=== PATIENT | female | born 1935 | race Caucasian/White ===

== ENCOUNTER 2021-12-17 17:37 | Emergency (ER) | payer MEDICAID ==
[~2021-12-17] VITALS: Ht 172.7 cm; Wt 81.6 kg
--- NOTE | 2021-12-17 17:37 | NUR ---
1730 BIBA BLS TO ER BED 1
[2021-12-17 17:41] VITALS: BP 127/66
--- NOTE | 2021-12-17 18:27 | NUR ---
ROBIN SPECIMEN COLLECTED AND HANDED TO LAB.
[2021-12-17 18:45] LABS: BASOPHILS % (AUTO) 0.2 % (0.0-2.0); EOSINOPHILS # (AUTO) 0.1 K/uL (0-0.4); EOSINOPHILS % (AUTO) 3.9 % (0.0-4.0); HEMATOCRIT 30.4 % (36-48); HEMOGLOBIN 10.4 g/dL (12.0-16.0); LYMPHOCYTES # (AUTO) 0.3 K/uL (2.5-16.5); LYMPHOCYTES % (AUTO) 10.6 % (20.5-51.1); MEAN CORPUSCULAR HEMOGLOBIN 30 pg (27-31); MEAN CORPUSCULAR HGB CONC 34 g/dL (33-37); MONOCYTES # (AUTO) 0.2 K/uL (0.8-1.0); MONOCYTES % (AUTO) 7.3 % (1.7-9.3); NEUTROPHILS # (AUTO) 2.2 K/uL (1.8-7.7); PLATELET COUNT (AUTO) 107 K/uL (140-450); RED BLOOD CELL COUNT(AUTO) 3.45 MIL/uL (4.20-5.40); RED CELL DISTRIBUTION WIDTH 14.3 % (11.6-13.7); WHITE BLOOD COUNT (AUTO) 2.9 K/uL (4.8-10.8)
[2021-12-17 19:09] LABS: ANION GAP 13.2 (8-16); ASPARTATE AMINOTRANSFERASE 16 U/L (15-37); CARBON DIOXIDE 22.5 mmol/L (21-32); CHLORIDE 107 mmol/L (98-107); CREATININE 1.3 mg/dL (0.6-1.3); GLUCOSE 131 mg/dL (74-106); POTASSIUM 3.7 mmol/L (3.5-5.1); SODIUM SERUM 139 mmol/L (136-145); TOTAL BILIRUBIN 0.4 mg/dL (0.0-1.0); UREA NITROGEN, BLOOD 24 mg/dL (7-18)
--- NOTE | 2021-12-17 19:19 | NUR ---
Pt report given to CHANDANA BLEVINS. Transfer of care at this time.
--- NOTE | 2021-12-17 19:25 | NUR ---
PT ASSISTED TO BATHROOM.
--- NOTE | 2021-12-17 19:37 | NUR ---
TALKED TO ANNAAIR GOLDSTEIN. NOTIFIED PT WAS COVID POSITIVE. MR INFORMED THEY DO TAKE PT BACK. PT WOULD BE QUARANTINED FOR 10 DAYS IN ROOM.
--- NOTE | 2021-12-17 19:44 | NUR ---
SPOKE TO PT DAUGHTER . INFORMED HER MOTHER WAS COVID POSITIVE. DAUGHTER OK WITH SENDING HER BACK TO [facility].
--- NOTE | 2021-12-17 21:40 | NUR ---
WALKED URINE TO LAB
[2021-12-17 22:13] LABS: APPEARANCE,URINE CLOUDY (CLEAR); BILIRUBIN,URINE NEGATIVE (NEGATIVE); BLOOD, URINE 3+ (NEGATIVE); COLOR,URINE YELLOW (YELLOW); LEUKOCYTE ESTERASE ,URINE 3+ (NEGATIVE); NITRITE, URINE NEGATIVE (NEGATIVE); UGLUCOSE NEGATIVE (NEGATIVE)
[2021-12-17 22:43] LABS: WBC,URINE TOO MANY TO COUNT /HPF (0-5)
[2021-12-17] MEDS ORDERED: SULF-59 PO (22:54)
[2021-12-17] MEDS ORDERED: cefTRIAXone 1,000 MG VIAL ONE (23:06)
[2021-12-18 00:22] LABS: ALBUMIN 2.9 g/dL (3.4-5.0)
[2021-12-18 00:37] VITALS: BP 139/51
--- NOTE | 2021-12-18 00:42 | NUR ---
ATTEMPTED TO CONTACT [facility], SPOKE WITH JEAN CLAUDE. PT OK TO TRANSPORT BACK
[2021-12-18] MEDS ORDERED: ACETAMINOPHEN 325 MG SUPP RC ONE ×2 (00:50→00:52)
--- NOTE | 2021-12-18 01:00 | NUR ---
PT TRANSPORTED BACK TO FACILITY AT THIS TIME. RX OF BACTRIM PROVIDED.
== END 2021-12-18 01:00 | disposition home or self-care (01) ==
LOC: MED 17:37
DX: U07.1 COVID-19 (principal); N39.0 Urinary tract infection, site not specified; F03.90 Unspecified dementia, unspecified severity, without behavioral disturbance, psychotic disturbance, mood disturbance, and anxiety; I10 Essential (primary) hypertension; Z79.899 Other long term (current) drug therapy
CPT/HCPCS: 36415; 71045; 80053; 81001; 85025; 87086; 87426; 96365; 99284; J0696

== ENCOUNTER 2022-05-26 10:06 | Emergency (ER) | payer OTHER, MEDICAID ==
[~2022-05-26] VITALS: Ht 157.5 cm; Wt 59.0 kg
[~2022-05-26 10:06] MED LIST: SULF-59 PO
[2022-05-26 10:15] VITALS: BP 166/57
--- NOTE | 2022-05-26 10:15 | NUR ---
PT TAKEN TO BED 1
--- NOTE | 2022-05-26 10:35 | NUR ---
87 Y/O BIBA FROM [facility], C/O OF DIARRHEA TODAY 4-5 EPISODES OF LOOSE STOOL. DENIES ANY N/V, CHEST PAIN AND SOB. PT DENIES ANY PAIN RIGHT NOW. PT IS A&OX3, SKIN INTACT, STEADY GAIT TO BED, VITALS WNL, AND NO SIGNS OF RESPIRATORY DISTRESS. PT WAS PLACED ON THE BEDSIDE MONITOR. NKA PMH: DEMENTIA, HTN, THYROID CA SX: BILATERAL HIP REPLACEMENT
[2022-05-26 11:00] LABS: BASOPHILS # (AUTO) 0.1 K/uL (0.00-0.22); BASOPHILS % (AUTO) 3.2 % (0.0-2.0); EOSINOPHILS % (AUTO) 0.3 % (0.0-4.0); HEMATOCRIT 35.3 % (36-48); LYMPHOCYTES % (AUTO) 30.9 % (20.5-51.1); MEAN CORPUSCULAR HEMOGLOBIN 31 pg (27-31); MEAN CORPUSCULAR HGB CONC 34 g/dL (33-37); MEAN CORPUSCULAR VOLUME 91.6 fL (80-94); MONOCYTES # (AUTO) 0.4 K/uL (0.8-1.0); MONOCYTES % (AUTO) 12.5 % (1.7-9.3); NEUTROPHILS # (AUTO) 1.7 K/uL (1.8-7.7); NEUTROPHILS % (AUTO) 53.1 % (42.2-75.2); PLATELET COUNT (AUTO) 166 K/uL (140-450); RED BLOOD CELL COUNT(AUTO) 3.86 MIL/uL (4.20-5.40); RED CELL DISTRIBUTION WIDTH 14.5 % (11.6-13.7); WHITE BLOOD COUNT (AUTO) 3.2 K/uL (4.8-10.8)
--- NOTE | 2022-05-26 11:13 | NUR ---
GAVE PT TWO BLANKETS AND INFORMED HER WE WERE WAITING ON HER LABS. ALL PTS NEEDS MET AT THIS TIME.
[2022-05-26 12:47] LABS: ANION GAP 19.2 (8-16); ASPARTATE AMINOTRANSFERASE 18 U/L (15-37); CARBON DIOXIDE 21.2 mmol/L (21-32); CHLORIDE 108 mmol/L (98-107); GLUCOSE 96 mg/dL (74-106); LIPASE 85 U/L (73-393); POTASSIUM 4.4 mmol/L (3.5-5.1); SODIUM SERUM 144 mmol/L (136-145); TOTAL BILIRUBIN 0.8 mg/dL (0.0-1.0); UREA NITROGEN, BLOOD 17 mg/dL (7-18)
[2022-05-26] MEDS ORDERED: LOPE-289 PO (13:10)
[2022-05-26 13:36] VITALS: BP 159/76
--- NOTE | 2022-05-26 13:37 | NUR ---
Patient discharged with v/s stable. Written and verbal after care instructions given and explained. Patient alert, oriented and verbalized understanding of instructions. Wheel Chair Assisted with to car. All questions addressed prior to discharge. ID band removed. Patient advised to follow up with PMD. Rx of IMODIUM A-D given. Patient educated on indication of medication including possible reaction and side effects. Opportunity to ask questions provided and answered.
== END 2022-05-26 13:37 | disposition home or self-care (01) ==
LOC: MED 10:06
DX: R19.7 Diarrhea, unspecified (principal); F03.90 Unspecified dementia, unspecified severity, without behavioral disturbance, psychotic disturbance, mood disturbance, and anxiety; I10 Essential (primary) hypertension; Z85.850 Personal history of malignant neoplasm of thyroid; Z79.899 Other long term (current) drug therapy
CPT/HCPCS: 36415; 80053; 83690; 85025; 99283

== ENCOUNTER 2022-07-26 16:50 | Emergency (ER) | payer OTHER, MEDICAID ==
[~2022-07-26] VITALS: Ht 154.9 cm; Wt 60.4 kg
[~2022-07-26 16:50] MED LIST changes: +LOPE-289 PO
--- NOTE | 2022-07-26 16:55 | NUR ---
BIBA BLS TO ER BED 8
--- NOTE | 2022-07-26 17:20 | NUR ---
Note undone in EDM - 07/26/22 at 1827 by PHSEP 87YO MALE PT SIGRID FROM [facility]. PER [facility], FACILITY STATES PT HAD "CLAMMY SKIN". UPON ARRIVAL , PT AAOX1 TO NAME -AT BASELINE W/ COOL DRY SKIN. NO VISIBLE DISTRESS. DENIES PAIN, N/V/D, FEVER OR CHILLS. FALL RISK . RESPIRATIONS EVEN AND UNLABORED. HOB POSITONED PER COMFORT, BED AT LOWEST POSITION, RAIL UPX2. HX: HTN, DIMENTIA , OSTEOARTHRITIS NKA
--- NOTE | 2022-07-26 17:20 | NUR ---
87YO FEMALE PT DERIKA FROM [facility]. PER [facility], FACILITY STATES PT HAD "CLAMMY SKIN". UPON ARRIVAL , PT AAOX1 TO NAME -AT BASELINE W/ COOL DRY SKIN. NO VISIBLE DISTRESS. DENIES PAIN, N/V/D, FEVER OR CHILLS. FALL RISK . RESPIRATIONS EVEN AND UNLABORED. HOB POSITONED PER COMFORT, BED AT LOWEST POSITION, RAIL UPX2. HX: HTN, DIMENTIA , OSTEOARTHRITIS NKA
[2022-07-26 17:39] VITALS: BP 158/61
--- NOTE | 2022-07-26 18:20 | NUR ---
PUREWICK IN PLACE - ON HIGH CONTINUOUS SUCTION .
--- NOTE | 2022-07-26 18:45 | NUR ---
LAB AT BEDSIDE
[2022-07-26 19:04] LABS: BASOPHILS % (AUTO) 0.2 % (0.0-2.0); EOSINOPHILS % (AUTO) 0.1 % (0.0-4.0); HEMATOCRIT 36.7 % (36-48); HEMOGLOBIN 12.6 g/dL (12.0-16.0); LYMPHOCYTES # (AUTO) 0.7 K/uL (2.5-16.5); LYMPHOCYTES % (AUTO) 8.6 % (20.5-51.1); MEAN CORPUSCULAR HEMOGLOBIN 31 pg (27-31); MEAN CORPUSCULAR HGB CONC 34 g/dL (33-37); MEAN CORPUSCULAR VOLUME 90.4 fL (80-94); MONOCYTES # (AUTO) 0.7 K/uL (0.8-1.0); MONOCYTES % (AUTO) 8.6 % (1.7-9.3); NEUTROPHILS # (AUTO) 6.2 K/uL (1.8-7.7); NEUTROPHILS % (AUTO) 82.5 % (42.2-75.2); PLATELET COUNT (AUTO) 203 K/uL (140-450); RED BLOOD CELL COUNT(AUTO) 4.06 MIL/uL (4.20-5.40); RED CELL DISTRIBUTION WIDTH 13.3 % (11.6-13.7); WHITE BLOOD COUNT (AUTO) 7.6 K/uL (4.8-10.8)
[2022-07-26 19:18] LABS: ANION GAP 14.8 (8-16); CHLORIDE 107 mmol/L (98-107); CREATININE 1.2 mg/dL (0.6-1.3); GLUCOSE 143 mg/dL (74-106); POTASSIUM 3.8 mmol/L (3.5-5.1); SODIUM SERUM 142 mmol/L (136-145); UREA NITROGEN, BLOOD 15 mg/dL (7-18)
--- NOTE | 2022-07-26 19:21 | NUR ---
REPORT GIVEN TO BRIDGETT ELLINGTON. ALL QUESTIONS ANSWERED. TRANSFER OF CARE AT THIS TIME
[2022-07-26 20:18] VITALS: BP 158/61
--- NOTE | 2022-07-26 20:18 | NUR ---
Patient discharged with v/s stable. Written and verbal after care instructions given and explained. Patient verbalized understanding. Wheel Chair Assisted with to alf. All questions addressed prior to discharge. Advised to follow up with PMD.
--- NOTE | 2022-07-26 20:27 | NUR ---
PT IS UP FOR DC. DAUGHTER WILL BE PICKING UP PT
== END 2022-07-26 20:18 | disposition home or self-care (01) ==
LOC: MED 16:50
DX: R53.1 Weakness (principal); I10 Essential (primary) hypertension; E03.9 Hypothyroidism, unspecified; F03.90 Unspecified dementia, unspecified severity, without behavioral disturbance, psychotic disturbance, mood disturbance, and anxiety
CPT/HCPCS: 36415; 80048; 84484; 85025; 93005; 99284

== ENCOUNTER 2022-11-17 09:02 | Emergency (ER) | payer OTHER, MEDICAID ==
[~2022-11-17] VITALS: Ht 157.5 cm; Wt 63.5 kg
--- NOTE | 2022-11-17 09:06 | NUR ---
Patient BIBA to bed 6.
[2022-11-17 09:10] VITALS: BP 110/47
--- NOTE | 2022-11-17 09:31 | NUR ---
X-Ray at bedside.
[2022-11-17 09:43] LABS: BASOPHILS % (AUTO) 0.6 % (0.0-2.0); EOSINOPHILS # (AUTO) 0.2 K/uL (0-0.4); EOSINOPHILS % (AUTO) 4.8 % (0.0-4.0); HEMATOCRIT 33.1 % (36-48); HEMOGLOBIN 11.8 g/dL (12.0-16.0); LYMPHOCYTES % (AUTO) 28.3 % (20.5-51.1); MEAN CORPUSCULAR HEMOGLOBIN 32 pg (27-31); MEAN CORPUSCULAR HGB CONC 36 g/dL (33-37); MONOCYTES # (AUTO) 0.3 K/uL (0.8-1.0); MONOCYTES % (AUTO) 9.4 % (1.7-9.3); NEUTROPHILS % (AUTO) 56.9 % (42.2-75.2); PLATELET COUNT (AUTO) 179 K/uL (140-450); RED BLOOD CELL COUNT(AUTO) 3.72 MIL/uL (4.20-5.40); RED CELL DISTRIBUTION WIDTH 13.2 % (11.6-13.7); WHITE BLOOD COUNT (AUTO) 3.5 K/uL (4.8-10.8)
--- NOTE | 2022-11-17 09:57 | NUR ---
87 y/o female biba from [facility] for c/o syncope. Per EMS, patient had a syncopal episode in the shower with staff. Patient was sitting on shower chair. Patient does not remember what happened. Denies any pain or discomfort. Medical History: Dementia, HTN, Thyroid CA NKDA
[2022-11-17 10:02] LABS: ALBUMIN 4.1 g/dL (3.4-5.0); ANION GAP 11.1 (8-16); ASPARTATE AMINOTRANSFERASE 11 U/L (15-37); CARBON DIOXIDE 28.1 mmol/L (21-32); CHLORIDE 105 mmol/L (98-107); CREATININE 1.1 mg/dL (0.6-1.3); GLUCOSE 129 mg/dL (74-106); POTASSIUM 3.2 mmol/L (3.5-5.1); SODIUM SERUM 141 mmol/L (136-145); TOTAL BILIRUBIN 0.7 mg/dL (0.0-1.0); UREA NITROGEN, BLOOD 24 mg/dL (7-18)
[2022-11-17 10:59] LABS: APPEARANCE,URINE CLOUDY (CLEAR); BILIRUBIN,URINE NEGATIVE (NEGATIVE); BLOOD, URINE TRACE-I (NEGATIVE); COLOR,URINE YELLOW (YELLOW); LEUKOCYTE ESTERASE ,URINE 3+ (NEGATIVE); NITRITE, URINE POSITIVE (NEGATIVE); PH,URINE 6.5 (5.0-9.0); UGLUCOSE NEGATIVE (NEGATIVE)
[2022-11-17 11:12] LABS: OTHER CASTS, URINE None Seen /LPF (None Seen); WBC,URINE 20-60 /HPF (0-5)
[2022-11-17 11:30] VITALS: BP 108/60
[2022-11-17] MEDS ORDERED: cefTRIAXone 1,000 MG in LIDOCAINE MPF 1% 2.1 ML IM ONE (12:10)
[2022-11-17] MEDS ORDERED: cefTRIAXone 1,000 MG VIAL ONE (12:14)
[2022-11-17] MEDS ORDERED: LIDOCAINE MPF 1% 5 ML ONE (12:14)
[2022-11-17] MEDS ORDERED: CEPH-588 PO (12:14)
--- NOTE | 2022-11-17 12:17 | NUR ---
called for report to dionisio at facility, states they will send [facility] for transport, eta 10 minutes
[2022-11-17] MEDS ORDERED: POTASSIUM CHLORIDE 10 MEQ TABER PO ONE (12:30)
--- NOTE | 2022-11-17 12:41 | NUR ---
Patient discharged with v/s stable. Written and verbal after care instructions given. Patient alert, oriented and verbalized understanding of instructions. Wheel Chair Assisted with by caregiver. All questions addressed prior to discharge. ID band removed. Patient advised to follow up with PMD. Rx of Keflex given. Opportunity to ask questions provided and answered.
--- NOTE | 2022-11-17 12:42 | NUR ---
The patient's care was reviewed and supervised by Moraima Bella, RN, RN.
[2022-11-18] MEDS ORDERED: PROPOFOL 200 MG/20 ML VIAL IV ONE ×2 (11:32)
--- NOTE | 2022-11-19 18:15 | NUR ---
LATE ENTRY. RECEIVED POSITIVE URINE CULTURE. DISCREPANCY LOG SIGNED BY DR WINTERS. TREATMENT APPROPRIATE. FORM PLACED IN BINDER
== END 2022-11-17 12:47 | disposition home or self-care (01) ==
LOC: MED 09:02
DX: N39.0 Urinary tract infection, site not specified (principal); E87.6 Hypokalemia; R55 Syncope and collapse; I10 Essential (primary) hypertension
CPT/HCPCS: 36415; 71045; 80053; 81001; 84484; 85025; 87086; 93005; 96372; 99285; J0696; J2001; J2704

== ENCOUNTER 2022-12-01 11:08 | Emergency (ER) | payer OTHER, MEDICAID ==
[~2022-12-01] VITALS: Ht 162.6 cm; Wt 72.6 kg
[~2022-12-01 11:08] MED LIST changes: +CEPH-588 PO
[2022-12-01 11:10] VITALS: BP 120/64
--- NOTE | 2022-12-01 11:10 | NUR ---
PT BIBA BLS TO BED 6
--- NOTE | 2022-12-01 11:10 | NUR ---
Ashley villavicencio in [facility] - 12/01/22 at 1110 by ANTHONY Patient BIBA to bed 6.
--- NOTE | 2022-12-01 11:26 | NUR ---
87 y/o female biba from [facility] c/o rash to abdomen, back and buttocks x 2 days. Patient has no known allergies. Denies any pain, discomfort or SOB. Per EMS, staff stated patient went out with family 2 days ago unsure if she had any new food. Medical History: HTN, Dementia NKDA
--- NOTE | 2022-12-01 11:47 | NUR ---
Dr. Alvarado evaluating patient at bedside.
--- NOTE | 2022-12-01 12:02 | NUR ---
Lab at bedside.
[2022-12-01 12:44] LABS: APPEARANCE,URINE HAZY (CLEAR); BILIRUBIN,URINE NEGATIVE (NEGATIVE); BLOOD, URINE TRACE-I (NEGATIVE); COLOR,URINE YELLOW (YELLOW); LEUKOCYTE ESTERASE ,URINE TRACE (NEGATIVE); NITRITE, URINE NEGATIVE (NEGATIVE); PH,URINE 6.5 (5.0-9.0); UGLUCOSE NEGATIVE (NEGATIVE)
[2022-12-01 12:55] LABS: HEMOGLOBIN 11.8 g/dL (12.0-16.0); PLATELET COUNT (AUTO) 175 K/uL (140-450)
[2022-12-01 12:58] LABS: HEMATOCRIT 33.8 % (36-48); MEAN CORPUSCULAR HEMOGLOBIN 33 pg (27-31); MEAN CORPUSCULAR HGB CONC 35 g/dL (33-37); MEAN CORPUSCULAR VOLUME 93.3 fL (80-94); RED BLOOD CELL COUNT(AUTO) 3.62 MIL/uL (4.20-5.40); RED CELL DISTRIBUTION WIDTH 13.7 % (11.6-13.7); WHITE BLOOD COUNT (AUTO) 3.9 K/uL (4.8-10.8)
[2022-12-01 13:17] LABS: BASOPHILS % (AUTO) 0.3 % (0.0-2.0); EOSINOPHILS # (AUTO) 0.4 K/uL (0-0.4); EOSINOPHILS % (AUTO) 9.7 % (0.0-4.0); LYMPHOCYTES # (AUTO) 0.5 K/uL (2.5-16.5); LYMPHOCYTES % (AUTO) 13.9 % (20.5-51.1); MONOCYTES # (AUTO) 0.4 K/uL (0.8-1.0); NEUTROPHILS # (AUTO) 2.6 K/uL (1.8-7.7); NEUTROPHILS % (AUTO) 66.1 % (42.2-75.2)
[2022-12-01 13:21] LABS: ALBUMIN 4.1 g/dL (3.4-5.0); ANION GAP 11.5 (8-16); ASPARTATE AMINOTRANSFERASE 9 U/L (15-37); CARBON DIOXIDE 29.2 mmol/L (21-32); CHLORIDE 107 mmol/L (98-107); GLUCOSE 105 mg/dL (74-106); POTASSIUM 3.7 mmol/L (3.5-5.1); SODIUM SERUM 144 mmol/L (136-145); TOTAL BILIRUBIN 0.4 mg/dL (0.0-1.0); UREA NITROGEN, BLOOD 24 mg/dL (7-18)
[2022-12-01 13:29] LABS: RBC,URINE 0-5 /HPF (0-5)
--- NOTE | 2022-12-01 14:01 | NUR ---
Patient was offered snacks.
[2022-12-01 14:03] LABS: EOSINOPHILS % (MANUAL) 2 % (0-4); LYMPHOCYTES % (MANUAL) 14 % (20-46); MONOCYTES % (MANUAL) 12 % (5-12)
[2022-12-01] MEDS ORDERED: LORA10TA19 PO (14:25)
[2022-12-01] MEDS ORDERED: NITR100C7 PO (14:25)
[2022-12-01 16:15] VITALS: BP 149/74
--- NOTE | 2022-12-01 16:15 | NUR ---
Patient discharged with v/s stable. Written and verbal after care instructions given. Patient alert, oriented and verbalized understanding of instructions. Ambulatory with steady gait. All questions addressed prior to discharge. ID band removed. Patient advised to follow up with PMD. Rx of Claritin given. Opportunity to ask questions provided and answered.
--- NOTE | 2022-12-01 16:16 | NUR ---
The patient's care was reviewed and supervised by Miguelina Arreola RN.
== END 2022-12-01 16:15 | disposition home or self-care (01) ==
LOC: MED 11:08
DX: R21 Rash and other nonspecific skin eruption (principal); N39.0 Urinary tract infection, site not specified; L29.9 Pruritus, unspecified; F03.90 Unspecified dementia, unspecified severity, without behavioral disturbance, psychotic disturbance, mood disturbance, and anxiety; Z79.899 Other long term (current) drug therapy; Z85.850 Personal history of malignant neoplasm of thyroid
CPT/HCPCS: 36415; 80053; 81001; 85025; 85651; 87086; 99283

== ENCOUNTER 2022-12-04 06:39 | Inpatient (IN) | payer OTHER, MEDICAID ==
[~2022-12-04] VITALS: Ht 162.6 cm; Wt 68.0 kg
[~2022-12-04 06:39] MED LIST changes: +LORA10TA19 PO; +NITR100C7 PO
--- NOTE | 2022-12-04 06:41 | NUR ---
PT DERIKA ALS ER BED 6
[2022-12-04 06:53] VITALS: BP 116/68
--- NOTE | 2022-12-04 06:58 | NUR ---
Patient being evaluated by physician at bedside.
--- NOTE | 2022-12-04 07:19 | NUR ---
XRAY AT BEDSIDE
--- NOTE | 2022-12-04 07:20 | NUR ---
Recieved report from GOVIND Singh for transfer of care.
--- NOTE | 2022-12-04 07:28 | NUR ---
Lab at bedside.
[2022-12-04 07:34] LABS: BASOPHILS % (AUTO) 0.3 % (0.0-2.0); EOSINOPHILS # (AUTO) 0.8 K/uL (0-0.4); EOSINOPHILS % (AUTO) 13.9 % (0.0-4.0); HEMATOCRIT 36.7 % (36-48); HEMOGLOBIN 12.4 g/dL (12.0-16.0); LYMPHOCYTES # (AUTO) 0.7 K/uL (2.5-16.5); LYMPHOCYTES % (AUTO) 11.6 % (20.5-51.1); MEAN CORPUSCULAR HEMOGLOBIN 31 pg (27-31); MEAN CORPUSCULAR HGB CONC 34 g/dL (33-37); MEAN CORPUSCULAR VOLUME 91.6 fL (80-94); MONOCYTES # (AUTO) 0.2 K/uL (0.8-1.0); MONOCYTES % (AUTO) 3.6 % (1.7-9.3); NEUTROPHILS # (AUTO) 4.1 K/uL (1.8-7.7); NEUTROPHILS % (AUTO) 70.6 % (42.2-75.2); PLATELET COUNT (AUTO) 158 K/uL (140-450); RED BLOOD CELL COUNT(AUTO) 4.01 MIL/uL (4.20-5.40); RED CELL DISTRIBUTION WIDTH 13.7 % (11.6-13.7); WHITE BLOOD COUNT (AUTO) 5.8 K/uL (4.8-10.8)
[2022-12-04 07:50] LABS: ALBUMIN 3.9 g/dL (3.4-5.0); ANION GAP 10.9 (8-16); ASPARTATE AMINOTRANSFERASE 10 U/L (15-37); CARBON DIOXIDE 28.4 mmol/L (21-32); CHLORIDE 106 mmol/L (98-107); CREATININE 1.3 mg/dL (0.6-1.3); GLUCOSE 117 mg/dL (74-106); POTASSIUM 3.3 mmol/L (3.5-5.1); SODIUM SERUM 142 mmol/L (136-145); TOTAL BILIRUBIN 0.9 mg/dL (0.0-1.0); UREA NITROGEN, BLOOD 27 mg/dL (7-18)
[2022-12-04 07:56] LABS: APPEARANCE,URINE HAZY (CLEAR); BILIRUBIN,URINE NEGATIVE (NEGATIVE); BLOOD, URINE TRACE-I (NEGATIVE); COLOR,URINE YELLOW (YELLOW); LEUKOCYTE ESTERASE ,URINE 1+ (NEGATIVE); NITRITE, URINE NEGATIVE (NEGATIVE); PH,URINE 5.5 (5.0-9.0); UGLUCOSE NEGATIVE (NEGATIVE)
[2022-12-04 08:12] LABS: RBC,URINE 0-5 /HPF (0-5); URINE AMORPHOUS URATE 1+ /HPF (None Seen)
--- NOTE | 2022-12-04 08:40 | NUR ---
Dr. Zimmerman re-evaluating patient at bedside.
[2022-12-04] MEDS ORDERED: DONE10TA10 PO (08:54)
[2022-12-04] MEDS ORDERED: HYDR-4004 PO (08:54)
[2022-12-04] MEDS ORDERED: RIS1 PO (08:54)
[2022-12-04] MEDS ORDERED: METO-625 PO (08:54)
[2022-12-04] MEDS ORDERED: ARIP5TAB8 PO (08:54)
[2022-12-04] MEDS ORDERED: ACETAMINOPHEN 325 MG TAB PO PRN (09:00)
[2022-12-04] MEDS ORDERED: HYDROcodone/APAP 7.5/325 MG 1 TAB PO PRN (09:00)
[2022-12-04] MEDS ORDERED: guaiFENesin DM 200/20 MG-10 ML 10 ML UDC PO PRN (09:00)
[2022-12-04] MEDS ORDERED: DOCUSATE SODIUM 100 MG GELCAP PO PRN (09:00)
[2022-12-04] MEDS ORDERED: ZOLPIDEM 5 MG TAB PO PRN (09:00)
[2022-12-04] MEDS ORDERED: ONDANSETRON 4 MG/2 ML VIAL IM/IVP PRN (09:00)
[2022-12-04] MEDS ORDERED: NACL 0.9% 2,000 ML IV ONE (09:05)
[2022-12-04] MEDS ORDERED: cefTRIAXone 1,000 MG VIAL ONE (09:29)
[2022-12-04] MEDS: PANTOPRAZOLE 40 MG TABEC PO SCH (09:59)
--- NOTE | 2022-12-04 10:10 | NUR ---
Patient was assisted to the restroom. Patient ambulated with steady gait.
[2022-12-04 10:35] LABS: CHOL/HDL RATIO 3.1 (1-4.5); FREE T4 (FREE THYROXINE) 1.02 ng/dL (0.76-1.46); MAGNESIUM 2.1 mg/dL (1.8-2.4); PHOSPHORUS 2.8 mg/dL (2.5-4.9); THYROID STIMULATING HORMONE 3.42 uIU/mL (0.34-3.74)
--- NOTE | 2022-12-04 11:10 | NUR ---
Patient will be admitted to care of Dr. Hopkins. Admited to Med-Surg. Will go to room 123-B. Belongings list completed. Report to GOVIND Bryan.
--- NOTE | 2022-12-04 11:28 | NUR ---
RECEIVED CONFUSED FIGHTING HITTING UNABLE TO FULLY ASSESS MD JC MADE AWARE WITH ATIVAN 2MG Q 12 HOUR NOTED AND WILL CARRY OUT
[2022-12-04] MEDS ORDERED: LORazepam 2 MG/ML VIAL IVP PRN (11:30)
--- NOTE | 2022-12-04 12:00 | NUR ---
PT REFUSING TO TAKE OFF STREET CLOTHES RECEIVED PT FROM ED MIN STREET CLOTHES PT REMAINS NON COMPLAINAT
[2022-12-04 12:10] VITALS: BP 121/74
[2022-12-04] MEDS: NACL 0.9% 1,000 ML IV SCH ×2 (12:46→19:00)
[2022-12-04 16:00] VITALS: BP 133/77
[2022-12-04] MEDS ORDERED: HALOPERIDOL IM 5 MG/ML VIAL IM SCH (17:10)
--- NOTE | 2022-12-04 17:13 | NUR ---
PT INCREASINGLY AGITATED AND CONFUSED HITTING AT STAFF AND UNCOOPERATIVE MD JC MADE AWARE WITH ATIVAN Q4H PRN AND HJALDOL X1 WILL NOTED AND CARRY OUT
[2022-12-04] MEDS ORDERED: LORazepam 2 MG/ML VIAL ONE (17:18)
--- NOTE | 2022-12-04 17:34 | NUR ---
ATIVAN 1MG IV GIVEN ORDERED AND PT SOMEWHAT CALM NOW WILL CONTINUE TO MONITOR AND ASSESSS
--- NOTE | 2022-12-04 19:25 | NUR ---
RECEIVED PT FROM MORNING SHIFT NURSE. PT IS LYING ON THE BED, SLEEPING. PT IS AOX1, AMBULATORY WITH ASSIST. PT IS ON ROOM AIR AND ON REGULAR DIET. PT HAS IV ON RIGHT AC GAUGE 20 RUNNING WITH NS AT 10 ML/HR. PT SKIN IS INTACT BUT THERE'S A RASH ON THE BACK. NO COMPLAIN OF PAIN AT THIS TIME. NO S/S OF RESPIRATORY DISTRESS NOTED. ALL SAFETY MEASURES IMPLEMENTED. BED IN LOW POSITION, BED WHEELS ON LOCK AND CALL LIGHT WITHIN REACH.
[2022-12-04 20:00] VITALS: BP 114/53
[2022-12-04] MEDS: risperiDONE 1 MG TAB PO SCH (20:36)
[2022-12-04] MEDS: METOPROLOL 50 MG TAB PO SCH (20:36)
[2022-12-04] MEDS: DONEPEZIL 10 MG TAB PO SCH (20:36)
--- NOTE | 2022-12-04 20:36 | NUR ---
SCHEDULED AND PRESCRIBED MEDICATION WAS GIVEN TO PT PER MD ORDER. ALL SAFETY MEASURES IMPLEMENTED. BED IN LOW POSITION, BED WHEELS ON LOCK AND CALL LIGHT WITHIN REACH.
[2022-12-04] MEDS: POTASSIUM CHLORIDE 10 MEQ TABER PO PRN (23:43)
--- NOTE | 2022-12-04 23:43 | NUR ---
K-DUR 40 MEQ WAS GIVEN TO PT DUE TO POTASSIUM LEVEL IS 3.3 ALL SAFETY MEASURES IMPLEMENTED. BED IN LOW POSITION, BED WHEELS ON LOCK AND CALL LIGHT WITHIN REACH.
--- NOTE | 2022-12-05 02:00 | NUR ---
PT IS SLEEPING. CHEST RISE AND FALL SYMMETRICALLY NOTED. RESPIRATION IS EVEN AND UNLABORED. ALL SAFETY MEASURES IMPLEMENTED. BED IN LOW POSITION, BED WHEELS ON LOCK AND CALL LIGHT WITHIN REACH.
[2022-12-05] MEDS: NACL 0.9% 1,000 ML IV SCH ×2 (05:00→15:38)
[2022-12-05 06:02] LABS: BASOPHILS % (AUTO) 0.1 % (0.0-2.0); EOSINOPHILS # (AUTO) 0.9 K/uL (0-0.4); EOSINOPHILS % (AUTO) 17.2 % (0.0-4.0); HEMATOCRIT 30.8 % (36-48); HEMOGLOBIN 10.7 g/dL (12.0-16.0); LYMPHOCYTES # (AUTO) 0.7 K/uL (2.5-16.5); LYMPHOCYTES % (AUTO) 14.6 % (20.5-51.1); MEAN CORPUSCULAR HEMOGLOBIN 32 pg (27-31); MEAN CORPUSCULAR HGB CONC 35 g/dL (33-37); MONOCYTES # (AUTO) 0.3 K/uL (0.8-1.0); MONOCYTES % (AUTO) 5.7 % (1.7-9.3); NEUTROPHILS # (AUTO) 3.1 K/uL (1.8-7.7); NEUTROPHILS % (AUTO) 62.4 % (42.2-75.2); PLATELET COUNT (AUTO) 121 K/uL (140-450); RED BLOOD CELL COUNT(AUTO) 3.35 MIL/uL (4.20-5.40); RED CELL DISTRIBUTION WIDTH 13.5 % (11.6-13.7)
[2022-12-05 06:29] LABS: CARBON DIOXIDE 25.6 mmol/L (21-32); CHLORIDE 113 mmol/L (98-107); GLUCOSE 121 mg/dL (74-106); POTASSIUM 3.6 mmol/L (3.5-5.1); SODIUM SERUM 147 mmol/L (136-145); UREA NITROGEN, BLOOD 25 mg/dL (7-18)
--- NOTE | 2022-12-05 07:17 | NUR ---
PT IS STABLE. NO ACUTE EVENTS THROUGHOUT THE NIGHT.NO S/SX OF DISTRESS AT THIS MOMENT.ALL NEEDS ATTENDED. ALL PRECAUTIONS IN PLACE. CALL LIGHT WITHIN REACH. ENDORSED TO DAY RN.
[2022-12-05 08:00] VITALS: BP 128/47
[2022-12-05] MEDS: risperiDONE 1 MG TAB PO SCH ×2 (08:23→21:23)
[2022-12-05] MEDS: METOPROLOL 50 MG TAB PO SCH ×2 (08:23→21:23)
[2022-12-05] MEDS: hydroCHLOROthiazide 25 MG TAB PO SCH (08:23)
[2022-12-05] MEDS: PANTOPRAZOLE 40 MG TABEC PO SCH (08:23)
[2022-12-05] MEDS: ARIPiprazole 10 MG TAB PO SCH (08:23)
--- NOTE | 2022-12-05 09:08 | NUR ---
ASSESSMENT COMPLETED PLAN OF CARE REVIEWED PT RESTLESS PULLING AT IV WILL MEDICATE WITH ATIVAN ORDERED FOR RESTLESSNESS AND AGITATION AT THIS TIME
--- NOTE | 2022-12-05 09:09 | NUR ---
PATIENT HAS BEEN SCREENED AND CATEGORIZED MODERATE NUTRITION RISK. PATIENT WILL BE SEEN WITHIN 3-5 DAYS OF ADMISSION. REVIEWED BY CORDELIA BUSH RD
[2022-12-05] MEDS: LORazepam 2 MG/ML VIAL IVP PRN ×3 (09:18→22:32)
--- NOTE | 2022-12-05 09:20 | NUR ---
ATIVAN 1MG GIVEN ORDERED AND 1MG WASTED WITH ADZ RN
--- NOTE | 2022-12-05 14:23 | NUR ---
PT NON COOPERATIVE ATTEMPTING TO CLIMB OUT OF BED FIGHTING STAFF ATIVAN 1MG GIVEN ORDERED 1MG WASTED WITH ADZ RN WILL CONTINUE TO MONITOR AND ASSESS
[2022-12-05 16:00] VITALS: BP 109/59
[2022-12-05 20:00] VITALS: BP 121/64
--- NOTE | 2022-12-05 20:04 | NUR ---
PATIENT ATTEMPTING TO PULL OUT IV AND CLIMB OUT OF BED. PATIENT IS CONFUSED AND A HIGH RISK FOR FALL AND INJURY. DR. HOROWITZ CALLED AND NOTIFIED. ORDERS GIVEN TO APPLY ROCIO SOFT WRIST RESTRAINTS. ROCIO SOFT WRIST RESTRAINTS APPLIED ORDERED. Princess MARMLOEJO RN.
[2022-12-05] MEDS: DONEPEZIL 10 MG TAB PO SCH (21:23)
[2022-12-06 04:00] VITALS: BP 158/85
[2022-12-06 05:24] LABS: BASOPHILS % (AUTO) 0.1 % (0.0-2.0); EOSINOPHILS # (AUTO) 1.3 K/uL (0-0.4); EOSINOPHILS % (AUTO) 28.1 % (0.0-4.0); HEMATOCRIT 32.1 % (36-48); HEMOGLOBIN 11.2 g/dL (12.0-16.0); LYMPHOCYTES # (AUTO) 0.9 K/uL (2.5-16.5); LYMPHOCYTES % (AUTO) 20.3 % (20.5-51.1); MEAN CORPUSCULAR HEMOGLOBIN 32 pg (27-31); MEAN CORPUSCULAR HGB CONC 35 g/dL (33-37); MONOCYTES # (AUTO) 0.3 K/uL (0.8-1.0); MONOCYTES % (AUTO) 6.6 % (1.7-9.3); NEUTROPHILS % (AUTO) 44.9 % (42.2-75.2); PLATELET COUNT (AUTO) 132 K/uL (140-450); RED BLOOD CELL COUNT(AUTO) 3.53 MIL/uL (4.20-5.40); RED CELL DISTRIBUTION WIDTH 13.7 % (11.6-13.7); WHITE BLOOD COUNT (AUTO) 4.5 K/uL (4.8-10.8)
[2022-12-06 06:03] LABS: ANION GAP 15.4 (8-16); CARBON DIOXIDE 22.8 mmol/L (21-32); CHLORIDE 112 mmol/L (98-107); CREATININE 0.7 mg/dL (0.6-1.3); GLUCOSE 118 mg/dL (74-106); POTASSIUM 3.2 mmol/L (3.5-5.1); SODIUM SERUM 147 mmol/L (136-145); UREA NITROGEN, BLOOD 19 mg/dL (7-18)
[2022-12-06] MEDS: NACL 0.9% 1,000 ML IV SCH ×3 (06:18→20:15)
[2022-12-06 08:00] VITALS: BP 167/71
[2022-12-06] MEDS: PANTOPRAZOLE 40 MG TABEC PO SCH (09:03)
[2022-12-06] MEDS: METOPROLOL 50 MG TAB PO SCH ×2 (09:03→21:18)
[2022-12-06] MEDS: hydroCHLOROthiazide 25 MG TAB PO SCH (09:03)
[2022-12-06] MEDS: ARIPiprazole 10 MG TAB PO SCH (09:03)
[2022-12-06] MEDS: risperiDONE 1 MG TAB PO SCH ×2 (09:04→21:18)
[2022-12-06] MEDS: LORazepam 2 MG/ML VIAL IVP PRN (09:04)
--- NOTE | 2022-12-06 09:05 | NUR ---
ASSESSMENT COMPLETED PT AGITATED AND ANXIOUS ATIVAN 1MG GIVEN AND 1MG WASTED WITH CLOTILDE RN WILL CONTINUE TO MONITOR AND ASSESS RESTRAINTS IN PLACE AT THIS TIME REALITY ORIENTATION PROVIDED
[2022-12-06] MEDS: POTASSIUM CHLORIDE 10 MEQ TABER PO PRN (09:46)
[2022-12-06 16:00] VITALS: BP 116/74
[2022-12-06] MEDS ORDERED: ARIPiprazole 10 MG TAB PO SCH (19:00)
[2022-12-06 20:00] VITALS: BP 141/79
[2022-12-06] MEDS: DONEPEZIL 10 MG TAB PO SCH (21:18)
[2022-12-07] MEDS: LORazepam 2 MG/ML VIAL IVP PRN (00:50)
[2022-12-07 04:00] VITALS: BP 139/84
[2022-12-07 05:49] LABS: BASOPHILS % (AUTO) 0.2 % (0.0-2.0); EOSINOPHILS # (AUTO) 1.5 K/uL (0-0.4); EOSINOPHILS % (AUTO) 19.6 % (0.0-4.0); HEMATOCRIT 32.9 % (36-48); HEMOGLOBIN 11.4 g/dL (12.0-16.0); LYMPHOCYTES # (AUTO) 1.4 K/uL (2.5-16.5); LYMPHOCYTES % (AUTO) 18.8 % (20.5-51.1); MEAN CORPUSCULAR HEMOGLOBIN 32 pg (27-31); MEAN CORPUSCULAR HGB CONC 35 g/dL (33-37); MEAN CORPUSCULAR VOLUME 91.7 fL (80-94); MONOCYTES # (AUTO) 0.6 K/uL (0.8-1.0); MONOCYTES % (AUTO) 8.2 % (1.7-9.3); NEUTROPHILS % (AUTO) 53.2 % (42.2-75.2); PLATELET COUNT (AUTO) 138 K/uL (140-450); RED BLOOD CELL COUNT(AUTO) 3.59 MIL/uL (4.20-5.40); RED CELL DISTRIBUTION WIDTH 13.9 % (11.6-13.7); WHITE BLOOD COUNT (AUTO) 7.6 K/uL (4.8-10.8)
[2022-12-07 06:11] LABS: ANION GAP 13.1 (8-16); CARBON DIOXIDE 24.7 mmol/L (21-32); CHLORIDE 111 mmol/L (98-107); CREATININE 0.8 mg/dL (0.6-1.3); GLUCOSE 125 mg/dL (74-106); POTASSIUM 3.8 mmol/L (3.5-5.1); SODIUM SERUM 145 mmol/L (136-145); UREA NITROGEN, BLOOD 14 mg/dL (7-18)
--- NOTE | 2022-12-07 07:29 | NUR ---
PT RESTING IN BED EYES CLOSED. NO GUARDING OR GRIMACING NOTED. NO ACUTE DISTRESS NOTED AT THIS TIME. [id number].
--- NOTE | 2022-12-07 07:47 | NUR ---
RECEIVED PT FROM NICKY WEBBER [id number].
[2022-12-07] MEDS ORDERED: ARIPiprazole 10 MG TAB PO SCH (09:00)
[2022-12-07] MEDS: hydroCHLOROthiazide 25 MG TAB PO SCH (09:51)
[2022-12-07] MEDS: METOPROLOL 50 MG TAB PO SCH (09:51)
[2022-12-07] MEDS: PANTOPRAZOLE 40 MG TABEC PO SCH (09:52)
[2022-12-07] MEDS: risperiDONE 1 MG TAB PO SCH (09:52)
--- NOTE | 2022-12-07 11:36 | NUR ---
RN asked to set up [facility] transport to [facility], case management asked that [facility] be used ([phone]). Patient will be picked up between [phone], patients nurse Noemy made aware.
--- NOTE | 2022-12-07 14:50 | NUR ---
PT DISCHARGED VIA TRASNPORT ON GURNEY NO GUARDING OR GRIMACING NOTED. NO ACUTE DISTRESS NOTED AT THIS TIME. [id number].
== END 2022-12-07 12:50 | DRG 871 ==
LOC: MED 06:39 → MTU 09:04
PROVIDERS: ADMIT Family Medicine; ATTEND Family Medicine
DX: A41.9 Sepsis, unspecified organism (principal); G93.41 Metabolic encephalopathy; N39.0 Urinary tract infection, site not specified; L03.116 Cellulitis of left lower limb; E87.0 Hyperosmolality and hypernatremia; E86.0 Dehydration; E87.6 Hypokalemia; Z20.822 Contact with and (suspected) exposure to COVID-19; F03.90 Unspecified dementia, unspecified severity, without behavioral disturbance, psychotic disturbance, mood disturbance, and anxiety; I10 Essential (primary) hypertension; F39 Unspecified mood [affective] disorder; D64.9 Anemia, unspecified
CPT/HCPCS: 36415; 70450; 71045; 73610; 80048; 80053; 81001; 82150; 83036; 83605; 83690; 83735; 83880; 84100; 84436; 84439; 84443; 84479; 85025; 85610; 85730; 87040; 87086; 93005; 96360; 97112; 97116; 97163-GP; 99285; J0696; J2060; J7060; Q0092

== ENCOUNTER 2023-01-08 08:21 | Emergency (ER) | payer OTHER, MEDICAID ==
[~2023-01-08] VITALS: Ht 162.6 cm; Wt 72.6 kg
[~2023-01-08 08:21] MED LIST changes: +ARIP5TAB8 PO; -CEPH-588 PO; +DONE10TA10 PO; +HYDR-4004 PO; -LOPE-289 PO; +METO-625 PO; -NITR100C7 PO; +RIS1 PO; -SULF-59 PO
[2023-01-08 08:31] VITALS: BP 123/79
[2023-01-08] MEDS ORDERED: MORPHINE SULFATE 2 MG/ML SYR IVP PRN (08:35)
[2023-01-08] MEDS ORDERED: NACL 0.9% 1,000 ML IV ONE (08:35)
[2023-01-08] MEDS ORDERED: ONDANSETRON 4 MG/2 ML VIAL IVP ONE (08:35)
[2023-01-08 09:44] LABS: APPEARANCE,URINE CLEAR (CLEAR); BILIRUBIN,URINE NEGATIVE (NEGATIVE); BLOOD, URINE NEGATIVE (NEGATIVE); COLOR,URINE YELLOW (YELLOW); LEUKOCYTE ESTERASE ,URINE NEGATIVE (NEGATIVE); NITRITE, URINE NEGATIVE (NEGATIVE); UGLUCOSE NEGATIVE (NEGATIVE)
[2023-01-08 10:03] LABS: ALBUMIN 4.7 g/dL (3.4-5.0); ANION GAP 12.9 (8-16); ASPARTATE AMINOTRANSFERASE 16 U/L (15-37); CHLORIDE 104 mmol/L (98-107); CREATININE 1.2 mg/dL (0.6-1.3); GLUCOSE 140 mg/dL (74-106); POTASSIUM 3.9 mmol/L (3.5-5.1); SODIUM SERUM 140 mmol/L (136-145); TOTAL BILIRUBIN 0.8 mg/dL (0.0-1.0); UREA NITROGEN, BLOOD 34 mg/dL (7-18)
[2023-01-08 10:10] LABS: HEMOGLOBIN 13.4 g/dL (12.0-16.0)
[2023-01-08 10:20] LABS: BASOPHILS # (AUTO) 0.1 K/uL (0.00-0.22); BASOPHILS % (AUTO) 1.1 % (0.0-2.0); EOSINOPHILS % (AUTO) 0.4 % (0.0-4.0); HEMATOCRIT 38.3 % (36-48); LYMPHOCYTES # (AUTO) 0.2 K/uL (2.5-16.5); LYMPHOCYTES % (AUTO) 2.1 % (20.5-51.1); MEAN CORPUSCULAR HEMOGLOBIN 32 pg (27-31); MEAN CORPUSCULAR HGB CONC 35 g/dL (33-37); MONOCYTES # (AUTO) 0.3 K/uL (0.8-1.0); MONOCYTES % (AUTO) 2.8 % (1.7-9.3); NEUTROPHILS # (AUTO) 9.5 K/uL (1.8-7.7); NEUTROPHILS % (AUTO) 93.6 % (42.2-75.2); PLATELET COUNT (AUTO) 192 K/uL (140-450); RED BLOOD CELL COUNT(AUTO) 4.25 MIL/uL (4.20-5.40); RED CELL DISTRIBUTION WIDTH 13.5 % (11.6-13.7); WHITE BLOOD COUNT (AUTO) 10.2 K/uL (4.8-10.8)
[2023-01-08 11:27] VITALS: BP 127/52
== END 2023-01-08 11:27 ==
LOC: MED 08:21
DX: A08.4 Viral intestinal infection, unspecified (principal); I10 Essential (primary) hypertension; F03.90 Unspecified dementia, unspecified severity, without behavioral disturbance, psychotic disturbance, mood disturbance, and anxiety; Z79.899 Other long term (current) drug therapy
CPT/HCPCS: 36415; 71045; 74176; 80053; 81003; 82550; 82553; 83605; 83874; 83880; 84484; 85025; 87040; 93005; 96361; 96374; 96375; 99285; J2270; J2405; J7030; Q0092

== ENCOUNTER 2023-02-16 06:45 | Emergency (ER) | payer OTHER, MEDICAID ==
[~2023-02-16] VITALS: Ht 162.6 cm; Wt 49.9 kg
[2023-02-16 06:49] VITALS: BP 121/86
--- NOTE | 2023-02-16 06:50 | NUR ---
PT TO BED 11 ALS
--- NOTE | 2023-02-16 06:54 | NUR ---
87 yo f jose elias from [facility] with c/c of sob. per ems call was for n/v/d, when pt was found she was altered gcs 8-9, sating at 72% ra with rr of 6. on route pt desated to 65% rr5 emd assisted ventilation with bvm. pt is awake and alert. hx:dementia, htn nkA
[2023-02-16 07:10] LABS: BASOPHILS % (AUTO) 0.3 % (0.0-2.0); EOSINOPHILS # (AUTO) 0.1 K/uL (0-0.4); EOSINOPHILS % (AUTO) 1.5 % (0.0-4.0); HEMATOCRIT 34.9 % (36-48); LYMPHOCYTES # (AUTO) 0.7 K/uL (2.5-16.5); LYMPHOCYTES % (AUTO) 17.2 % (20.5-51.1); MEAN CORPUSCULAR HEMOGLOBIN 31 pg (27-31); MEAN CORPUSCULAR HGB CONC 34 g/dL (33-37); MEAN CORPUSCULAR VOLUME 89.9 fL (80-94); MONOCYTES # (AUTO) 0.4 K/uL (0.8-1.0); MONOCYTES % (AUTO) 9.6 % (1.7-9.3); NEUTROPHILS % (AUTO) 71.4 % (42.2-75.2); PLATELET COUNT (AUTO) 124 K/uL (140-450); RED BLOOD CELL COUNT(AUTO) 3.88 MIL/uL (4.20-5.40); RED CELL DISTRIBUTION WIDTH 13.6 % (11.6-13.7); WHITE BLOOD COUNT (AUTO) 4.2 K/uL (4.8-10.8)
--- NOTE | 2023-02-16 07:17 | NUR ---
Report given to Mario FAUST
[2023-02-16 07:50] LABS: ALBUMIN 3.8 g/dL (3.4-5.0); ANION GAP 15.3 (8-16); ASPARTATE AMINOTRANSFERASE 17 U/L (15-37); CARBON DIOXIDE 27.2 mmol/L (21-32); CHLORIDE 102 mmol/L (98-107); CREATININE 1.3 mg/dL (0.6-1.3); GLUCOSE 143 mg/dL (74-106); POTASSIUM 3.5 mmol/L (3.5-5.1); SODIUM SERUM 141 mmol/L (136-145); TOTAL BILIRUBIN 0.7 mg/dL (0.0-1.0); UREA NITROGEN, BLOOD 26 mg/dL (7-18)
[2023-02-16 07:55] LABS: LIPASE 77 U/L (73-393)
--- NOTE | 2023-02-16 08:24 | NUR ---
ON DUTY RECEIVED THIS PT LYING ON BED WITH CO SOB. MONITOR ON, O2 @NC 2L. O2 SAT 98%. PT GOT BIG BM LOOSE STOOL. WITH TALIA EMT ASSISTANCE, PT WAS CLEANED. DIAPER WAS CHANGED. IN&OUT CATH INSERTED, URINE SAMPLE TRIED BUT FAILED. PT WAS TOO DRY. ED MD NOTIFIED.
[2023-02-16] MEDS: NACL 0.9% 1,000 ML IV ONE (08:37)
--- NOTE | 2023-02-16 09:27 | NUR ---
URINE SAMPLE COLLECTED AND SENT TO LAB.
[2023-02-16 09:54] LABS: APPEARANCE,URINE CLEAR (CLEAR); BILIRUBIN,URINE NEGATIVE (NEGATIVE); BLOOD, URINE 1+ (NEGATIVE); COLOR,URINE YELLOW (YELLOW); LEUKOCYTE ESTERASE ,URINE NEGATIVE (NEGATIVE); NITRITE, URINE NEGATIVE (NEGATIVE); UGLUCOSE NEGATIVE (NEGATIVE)
[2023-02-16 09:55] LABS: BARBITURATE, URINE NEGATIVE ng/ml (NEG <=200); BENZODIAZEPINE, URINE NEGATIVE ng/mL (NEG <=200); CANNABINOID, URINE NEGATIVE ng/mL (NEG <=50); COCAINE, URINE NEGATIVE ng/mL (NEG <=300); OPIATE, URINE NEGATIVE ng/mL (NEG <=2000); PHENCYCLIDINE SCREEN,URINE NEGATIVE ng/mL (NEG <=25)
--- NOTE | 2023-02-16 10:38 | NUR ---
PT WAS RE-EXAMED BY ED MD. O2 SAT 99% @RA. PT WILL BE D/C'D HOME SOON.
[2023-02-16 10:52] LABS: WBC,URINE 0-5 /HPF (0-5)
--- NOTE | 2023-02-16 12:55 | NUR ---
PT WAS D/C'D HOME. AMBULANCE CAME IN TO PICKUP PT. REPORT WAS ENDORSED TO EMT. PT WAS D/C'D IN STABLE CONDITION.
[2023-02-16 12:56] VITALS: BP 131/68
--- NOTE | 2023-02-16 13:01 | NUR ---
pt was picked up through [facility] and taken back to [facility]
== END 2023-02-16 12:55 | disposition home or self-care (01) ==
LOC: MED 06:45
DX: R19.7 Diarrhea, unspecified (principal); R11.2 Nausea with vomiting, unspecified; R41.82 Altered mental status, unspecified; I10 Essential (primary) hypertension; F03.90 Unspecified dementia, unspecified severity, without behavioral disturbance, psychotic disturbance, mood disturbance, and anxiety; Z79.899 Other long term (current) drug therapy
CPT/HCPCS: 36415; 36600; 70450; 71045; 80053; 80305; 81001; 82550; 82803; 83690; 83880; 84484; 85025; 87040; 93005; 96360; 99285; Q0092; J7030